=== PATIENT | female | born 1955 | race Caucasian/White ===

== ENCOUNTER 2017-08-12 17:22 | Emergency (ER) | payer OTHER ==
[2015-05-22 14:54] VITALS: Ht 149.9 cm; Wt 113.9 kg
[~2017-08-12] VITALS: Ht 149.9 cm; Wt 113.9 kg
[~2017-08-12 17:22] MED LIST: ADV100/50 INH; ALB0.5 INH; ALB17R INH; ALBU8HFA INH; ALEN70TA2 PO; ALPR-429 PO; AML5; AZI250 PO; AZIT500T47 PO; BENZ-23 PO; BUPR-472 PO; CALC-638 PO; CALC3.7S10; CALC600T59 PO; CET10 PO; CHOL200021 PO; CIPR-344 PO; CLAR-12 PO; COM14R INH; CYCL10TA29 PO; DUL30 PO; DUONEB INH; EPIN0.3P14 IM; ESOM40CA42 PO; ESZO3TAB37 PO; EZE10 PO; EZET10TA41 PO; FEXO1TAB39 PO; FLUO-202 PO; FLUT10SP NS; FLUT16SP20 NS; FLUT1DIS27 IH; FLUT1DIS29 IH; FLUT1DIS32 IH; FUR20 PO; FURO-45 PO; GUAI-583 PO; GUAI-645 PO; HCTZ; HYD2 PO; HYD5L PO; HYDR-2970 PO; HYDR-5517 PO; HYDR2TAB4 PO; HYDR473S4 PO; IBU800 PO; IPRA3AMP36 IH; ITR100 PO; LEV500 PO; LEV75 PO; LEVA0.635 IH; LEVA1.2527 IH; LEVA15HF IH; LEVO5PT PO; LEVO750T23 PO; LEVO750T25 PO; LOR5/325 PO; LORA-1456 PO; MEP50 PO; METF-410 PO; METF-420 PO; METR-1 PO; METR-119 PO; MODA100T32 PO; MODA200T39 PO; MODA200T6 PO; MOM110R IH; MOME8.8H2 IH; MON10 PO; MONT10TA PO; MOX400 PO; MULT-820 PO; MULTIVIT; NITR-106 PO; OMAL150V2 SQ; ONDA4TAB PO; OXYC-869 PO; PER PO; POT10 PO; POTA-187 PO; POTA20PA10 PO; POTA25TA6 PO; POTA99TA6 PO; PRAV10TA45 PO; PRE1 PO; PRE20 PO; PRE200PT PO; SENN-192 PO; SERT-173 PO; SPI25 PO; SPIR1TAB28 PO; SPIR25TA78 PO; TEMA-55 PO; TIO18R; TRAZ-133 PO; VITA600C4 PO; [UNRECOGNIZED DRUG - CODE] MC; [UNRECOGNIZED DRUG - CODE] PO; [UNRECOGNIZED DRUG - OTHER]; oxygen INH
--- NOTE | 2017-08-12 17:23 | ER Report ---
History and Physical Time Seen By MD: 17:23 (GARFIELD MCNULTY MD) HPI/ROS CC: Chest pain HPI: 67 with a past medical history type II diabetes, interstitial lung disease on steroids, nasal cannula O2 at night, hypothyroidism, hypokalemia, hypertension, osteoporosis, abdominal wall hernia, lumbar compression fracture, frequent UTIs , coronary section, breast cancer, CHF. Patient presents to the emergency department with 1 week history of left chest pain sharp in nature worse with deep breathing radiating into her medial aspect of left arm. She denies any chest pressure, shortness of breath is at baseline, no diaphoresis, nausea or vomiting. Patient went to urgent care and received 2 nitroglycerin and the pain did not improve. Patient does have Dilaudid at home and it did not improve with Dilaudid. Patient is rating her pain as an 8 out of 10 with deep breathing. 6/ 10 while at rest. There are no alleviating factors. Pain is intermittent. ROS: 12 point review of systems essentially negative other than what's mentioned in history of present illness. NURSES AND OLD MEDICAL RECORDS: Reviewed PMH: Reviewed SURGICAL HX: Reviewed FAMILY HX: Noncontributory SOCIAL HX: Patient is manages at home she denied smoking alcohol or illicit drugs. VITAL SIGNS: Reviewed CONSTITUTIONAL: 62-year-old female in moderate distress. PHYSICAL EXAM: HEENT: Pupils equal round reactive to light and accommodate, EOMI, tympanic membranes pearly white umbo present with good light reflex. Lips dry mucous membranes moist gums nonbleeding uvula midline and rises equally with phonation, oropharynx noninjected, teeth intact. NECK: Neck supple, thyroid not appreciated, anterior and posterior cervical lymphadenopathy not appreciated. Trachea midline and rises equally with phonation. CARDIAC: S1-S2 regular rate rhythm no murmurs rubs or gallops. LUNGS: Lungs decreased air movement secondary to pain. Expiratory wheeze. ABDOMEN: Abdomen soft, nondistended, bowel sounds active in all 4 quadrants, no bruits noted, no CVA tenderness. MUSCULOSKELETAL: Strength 5 out of 5 x 4 extremities, no deformities noted. NEUROLOGIC: Patient alert and oriented by 3 (GARFIELD MCNULTY MD) Allergies: Coded Allergies: iodine (Verified Allergy, Severe, 08/12/17) Penicillins (Verified Allergy, Mild, 08/12/17) Sulfa (Sulfonamide Antibiotics) (Verified Allergy, Mild, ITCH, 08/12/17) codeine (Verified Allergy, Mild, ITCH, 08/12/17) oxycodone (Verified Allergy, Mild, 08/12/17) Home Meds Reported Medications Hydromorphone Hcl (DILAUDID) 2 Mg Tablet, 2 MG PO HS 08/12/17 Bupropion Hcl (WELLBUTRIN XL) 150 Mg Tab.er.24h, 150 MG PO QDAY, TAB 12/08/16 Montelukast Sodium (SINGULAIR) 10 Mg Tablet, 1 TAB PO QDAY, TAB 08/07/16 Potassium Gluconate (POTASSIUM) 99 Mg Tablet, 500 MG PO DAILY 08/07/16 Alprazolam (ALPRAZOLAM) 2 Mg Tablet, 1 TAB PO PRN Y for ANXIETY, #3 TAB 08/07/16 Fluticasone/Salmeterol (ADVAIR 100-50 DISKUS) 1 Each Disk.w.dev, 1 EACH IH BID 08/07/16 Omalizumab (XOLAIR) 150 Mg Vial, 150 MG SQ monthly, VIAL 04/26/15 Metformin Hcl (METFORMIN HCL) 1,000 Mg Tablet, 0.5 TAB PO BID, TAB 04/18/15 Furosemide (FUROSEMIDE) 20 Mg Tablet, PO 3XW, TAB 04/18/15 Levalbuterol Hcl (XOPENEX) 1.25 Mg/3 Ml Vial.neb, 1.25 MG IH PRN 12/05/13 Sennosides (VEGETABLE LAXATIVE) 8.6 Mg Tablet, 8.6 MG PO PRN 04/13/13 Levalbuterol Tartrate (XOPENEX HFA) 15 Gm Hfa.aer.ad, 45 GM IH PRN 04/13/13 Sertraline Hcl (Zoloft) 100 Mg Tablet, 150 MG PO QDAY 04/21/11 Amlodipine Besylate (Norvasc) 5 Mg Tab, 2.5 MG HS 04/21/11 Discontinued Scripts Hydromorphone Hcl (HYDROMORPHONE HCL) 2 Mg Tab, 1 TAB PO Q4H Y for PAIN, #20 TAB Prov:OLGA WOLFE DO 05/23/15 Hx Smoking: No Smoking Status: Never Smoker Exposure to Second Hand Smoke?: No Hx Substance Use Disorder: No Hx Alcohol Use: Yes (GARFIELD MCNULTY MD) Constitutional Vital Sign - Last 24 Hours 08/12/17 08/12/17 08/12/17 08/12/17 17:32 17:34 17:40 17:52 Temp 98.0 Pulse 96 93 Resp 24 16 B/P (MAP) 132/79 132/79 (96) Pulse Ox 84 96 O2 Delivery Room Air O2 Flow Rate 2.0 08/12/17 08/12/17 08/12/17 08/12/17 17:54 17:54 18:00 18:22 Pulse 90 92 Resp 16 8 B/P (MAP) 143/82 (102) Pulse Ox 94 92 O2 Delivery Nasal Cannula O2 Flow Rate 2.0 (SUSHANT ANTOINE MD) Medical Decision Making Data Points Result Diagram: 08/12/17175708/12/171757 Laboratory Hematology Test 08/12/17 17:58 Red Blood Count 4.75 M/uL (4.17-5.56) Mean Corpuscular Volume 93.8 fL (80.0-96.0) Mean Corpuscular Hemoglobin 31.4 pg (26.0-33.0) Mean Corpuscular Hemoglobin Concent 33.5 g/dL (32.0-36.0) Red Cell Distribution Width 13.9 % (11.5-14.5) Mean Platelet Volume 7.9 fL (7.2-11.1) Neutrophils (%) (Auto) 68.2 % (39.4-72.5) Lymphocytes (%) (Auto) 21.5 % (17.6-49.6) Monocytes (%) (Auto) 5.5 % (4.1-12.4) Eosinophils (%) (Auto) 3.8 % (0.4-6.7) Basophils (%) (Auto) 1.0 % (0.3-1.4) Nucleated RBC Relative Count (auto) 0.1 /100WBC Neutrophils # (Auto) 9.8 K/uL (2.0-7.4) Lymphocytes # (Auto) 3.1 K/uL (1.3-3.6) Monocytes # (Auto) 0.8 K/uL (0.3-1.0) Eosinophils # (Auto) 0.5 K/uL (0.0-0.5) Basophils # (Auto) 0.1 K/uL (0.0-0.1) Nucleated RBC Absolute Count (auto) 0.01 K/uL Sodium Level 136 mmol/L (137-145) Potassium Level 4.2 mmol/L (3.5-5.0) Chloride Level 100 mmol/L (98-107) Carbon Dioxide Level 28 mmol/L (22-31) Blood Urea Nitrogen 11 mg/dl (7-18) Creatinine 0.70 mg/dl (0.52-1.04) Glomerular Filtration Rate Calc > 60.0 Random Glucose 102 mg/dl (75-110) Calcium Level 9.5 mg/dl (8.4-10.2) Magnesium Level 1.6 mg/dl (1.7-2.2) Total Bilirubin 0.4 mg/dl (0.2-1.3) Aspartate Amino Transf (AST/SGOT) 66 U/L (0-35) Alanine Aminotransferase (ALT/SGPT) 61 U/L (0-56) Alkaline Phosphatase 134 U/L (0-126) Troponin I < 0.012 ng/ml B-Type Natriuretic Peptide 40 pg/ml (0-100) Total Protein 7.4 gm/dl (6.3-8.2) Albumin 4.1 g/dl (3.5-5.0) Chemistry Test 08/12/17 17:58 White Blood Count 14.4 k/uL (4.5-11.0) Red Blood Count 4.75 M/uL (4.17-5.56) Hemoglobin 14.9 g/dL (12.0-16.0) Hematocrit 44.5 % (34.0-47.0) Mean Corpuscular Volume 93.8 fL (80.0-96.0) Mean Corpuscular Hemoglobin 31.4 pg (26.0-33.0) Mean Corpuscular Hemoglobin Concent 33.5 g/dL (32.0-36.0) Red Cell Distribution Width 13.9 % (11.5-14.5) Platelet Count 361 K/uL (150-450) Mean Platelet Volume 7.9 fL (7.2-11.1) Neutrophils (%) (Auto) 68.2 % (39.4-72.5) Lymphocytes (%) (Auto) 21.5 % (17.6-49.6) Monocytes (%) (Auto) 5.5 % (4.1-12.4) Eosinophils (%) (Auto) 3.8 % (0.4-6.7) Basophils (%) (Auto) 1.0 % (0.3-1.4) Nucleated RBC Relative Count (auto) 0.1 /100WBC Neutrophils # (Auto) 9.8 K/uL (2.0-7.4) Lymphocytes # (Auto) 3.1 K/uL (1.3-3.6) Monocytes # (Auto) 0.8 K/uL (0.3-1.0) Eosinophils # (Auto) 0.5 K/uL (0.0-0.5) Basophils # (Auto) 0.1 K/uL (0.0-0.1) Nucleated RBC Absolute Count (auto) 0.01 K/uL Glomerular Filtration Rate Calc > 60.0 Calcium Level 9.5 mg/dl (8.4-10.2) Magnesium Level 1.6 mg/dl (1.7-2.2) Total Bilirubin 0.4 mg/dl (0.2-1.3) Aspartate Amino Transf (AST/SGOT) 66 U/L (0-35) Alanine Aminotransferase (ALT/SGPT) 61 U/L (0-56) Alkaline Phosphatase 134 U/L (0-126) Troponin I < 0.012 ng/ml B-Type Natriuretic Peptide 40 pg/ml (0-100) Total Protein 7.4 gm/dl (6.3-8.2) Albumin 4.1 g/dl (3.5-5.0) (SUSHANT ANTOINE MD) EKG/Imaging EKG Interpretation Normal sinus rhythm, ventricular rate 92 bpm, CO interval 140 ms, QRS duration 76 ms, QT 362 ms, QTc is 447 ms. (GARFIELD MCNULTY MD) Imaging 08/12/2017 7:55:36 pm Chest x-ray shows possible loculated effusion to the right lung base versus overlying tissue. This is similar interpretation to her last chest x-ray that was done on 08/07/2016 which had a similar interpretation. (SUSHANT ANTOINE MD) ED Course/Re-evaluation ED Course 08/12/2017 7:00:22 pm plan at this time will be to follow up on cardiac workup and labs. Patient's symptoms have been present for over a week. EKG appears unremarkable and shows normal sinus rhythm, low voltage but no significant ST segment or T-wave abnormalities. I feel at this time that the patient can be safely ruled out with a single troponin based on the duration of her symptoms along with her atypical presentation for cardiac chest pain. 08/12/2017 7:53:52 pm patient received 1 mg of IV Dilaudid for her pain reports symptoms have significantly improved. Awaiting official read for chest x -ray remaining blood work is unremarkable. Decision to Disposition Date: Aug 12, 2017 Decision to Disposition Time: 19:55 Turned Over Patient was turned over to me at 1800 08/12/2017 6:56:33 pm I have reassessed the patient at this time. CHIEF COMPLAINT: Left-sided chest pain HISTORY OF PRESENT ILLNESS: Patient is a 62-year-old female with long-standing history of interstitial lung disease also history of type II diabetes and chronic steroid use. She initially presented to urgent care with complaint of left-sided chest pain. She was sent over from urgent care to the emergency department for further evaluation based on her chief complaint there was no pre- hospital EKG that was obtained. The patient states that she's had pain to the left chest specifically with movement of the torso the left upper arm and also reproducible to palpation for approximately 1 week. It is been constant but just getting worse over the course of 1 week. She is short of breath at baseline but denies any worsening of her shortness of breath. She denies actual chest pressure she describes it more as a sharp pleuritic type pain. It does not seem to be worsened by deep inspiration. She denies any fever she denies any cough. She states that she has tried her prescribed Dilaudid at home without relief of her symptoms. She also received 2 doses of sublingual nitroglycerin in the urgent care facility again without any change in her symptoms. REVIEW OF SYSTEMS: Constitutional: No fever, no chills. Eyes: No discharge. ENT: No sore throat. Cardiovascular: Left anterior chest wall pain, no palpitations Respiratory: No cough, baseline short of breath Gastrointestinal: No abdominal pain, no vomiting. Genitourinary: No hematuria. Musculoskeletal: Chronic back pain Skin: No rashes. Neurological: No headache. Past medical history: Patient with interstitial lung disease, history of type II diabetes, history of chronic steroid use General/Constitutional: Patient is awake, alert, nontoxic and in no acute respiratory distress. Head: Steroid feces, atraumatic Eyes: Conjunctival clear, Pupils are equal and reactive to light. Extraocular muscles are intact and symmetrical. Sclera are clear and anicteric. Oropharyngeal: Mucous membranes are moist. There is no pharyngeal erythema or exudate. There are no palatal petechiae. Uvula is midline and symmetrical. Cardiovascular: Heart is regular rate and rhythm without audible murmurs, rubs or gallops. The anterior chest wall is tender to palpation and exactly reproduces the patient's symptoms. Pain is also made worse with both passive and active range of motion of the left upper extremity. Pulmonary: Lungs are with scattered rhonchi bilaterally, chest rise is symmetrical. Abdomen: Soft, nontender, no guarding or peritoneal signs. Extremities: No gross deformities, Neuro: Alert and oriented X3, Skin: No rashes, skin is warm dry and well perfused. (SUSHANT ANTOINE MD) Depart Departure Latest Vital Signs Vital Signs Date Time Temp Pulse Resp B/P (MAP) Pulse Ox O2 Delivery O2 Flow Rate FiO2 08/12/17 18:22 92 8 92 08/12/17 18:00 143/82 (102) 08/12/17 17:54 Nasal Cannula 2.0 08/12/17 17:32 98.0 (SUSHANT ANTOINE MD) Impression: Primary Impression: Anterior chest wall pain Condition: Improved Disposition: HOME OR SELF-CARE New Scripts Methocarbamol (ROBAXIN-750) 750 Mg Tablet 1500 MG PO TID for m, #12 TAB 0 Refills Prov: SUSHANT ANTOINE MD 08/12/17 Patient Instructions: Chest Wall Pain (GEN) Additional Instructions: Follow-up with your primary care provider in 48-72 hours if symptoms persist. For the next 2-3 days he may also increase her Dilaudid 2 mg to every 12 hours instead of just at nighttime as needed for pain GARFIELD MCNULTY MD Aug 12, 2017 17:23 SUSHANT ANTOINE MD Aug 12, 2017 19:01
[2017-08-12] MEDS ORDERED: ALBUTEROL/IPRATROPIUM 3 ML NEB NEB SCH (17:40)
[2017-08-12] MEDS ORDERED: HYDR2TAB74 PO (17:44)
--- NOTE | 2017-08-12 17:57 | EKG ---
FACILITY: [facility] PATIENT NAME: KALE NYE : [id number] MR: [id number] V: [id number] EXAM DATE: ORDERING PHYSICIAN: GARFIELD MCNULTY TECHNOLOGIST: Test Reason : Blood Pressure : / mmHG Vent. Rate : 092 BPM Atrial Rate : 092 BPM P-R Int : 148 ms QRS Dur : 076 ms QT Int : 362 ms P-R-T Axes : 045 020 035 degrees QTc Int : 447 ms Normal sinus rhythm Normal ECG When compared with ECG of 07-AUG-2016 16:02, No significant change was found Confirmed by PARDEEP ALBARRAN ([id number]) on 08/13/2017 6:41:09 AM Referred By: HAMLET Confirmed By:PARDEEP ALBARRAN
[2017-08-12 18:21] LABS: PLATELET COUNT, AUTOMATED 361 K/uL (150-450)
[2017-08-12] MEDS ORDERED: HYDROmorphone(ER ONLY) 1 MG/ML IVP ONE (19:05)
--- NOTE | 2017-08-12 19:52 | RADIOLOGY IMAGING REPORT ---
[place] [facility] [place] NAME: Rachel Gipson : 1955 MR: [id number] V: [id number] EXAM DATE: ORDERING PHYSICIAN: GARFIELD MCNULTY TECHNOLOGIST: Location: [facility] Patient: Rachel Gipson : 1955 Visit/Account:[id number] Date of Sevice: 08/12/2017 CHEST PA AND LAT INDICATION: chest pain COMPARISON: None available FINDINGS: The cardiac silhouette is enlarged. There is no focal infiltrate or lobar consolidation. There appears to be small loculated right pleural effusion along the lateral pleural space versus und erlying pleural thickening. IMPRESSION: 1. Question loculated pleural effusion within the right lateral pleural space, however, this could r epresent overlying tissues. If clinically indicated, CT may be of benefit. 2. Cardiomegaly Report Dictated By: Delta Hawkins at 08/12/2017 7:46 PM Report E-Signed By: Delta Hawkins at 08/12/2017 7:49 PM [id number]
[2017-08-12] MEDS ORDERED: METH-543 PO (19:59)
[2017-08-12 20:15] VITALS: BP 109/64
== END 2017-08-12 20:21 | disposition home or self-care (01) ==
LOC: ER 17:29
DX: R07.89 Other chest pain (principal); I51.7 Cardiomegaly; E11.9 Type 2 diabetes mellitus without complications; J84.9 Interstitial pulmonary disease, unspecified; E03.9 Hypothyroidism, unspecified; E87.6 Hypokalemia; I10 Essential (primary) hypertension; M81.0 Age-related osteoporosis without current pathological fracture; I50.9 Heart failure, unspecified
CPT/HCPCS: 71046; 83735; 83880; 84484; 85025; 93005; 96374; 99284; J1170; J7620; 82040; 82247; 82310; 82374; 82435; 82565; 82947; 84075; 84132; 84155; 84295; 84450; 84460; 84520

== ENCOUNTER 2018-02-04 13:48 | Outpatient (RCR) | payer MEDICARE, OTHER ==
[2015-05-22 14:54] VITALS: BMI 54.5
[2017-12-03 14:17] VITALS: BP 158/88
[2018-01-03 16:55] VITALS: BP 158/68
[~2018-02-04 13:48] MED LIST changes: +HYDR2TAB74 PO; -METF-410 PO; +METF-411 PO; -METF-420 PO; +METF-421 PO; +METH-543 PO; +OMALIZUMAB 150 MG SVD SQ ONE; -SPIR25TA78 PO; +SPIR25TA80 PO
[2018-02-04 14:05] VITALS: BP 128/67
[2018-02-07] MEDS ORDERED: KET10 PO (17:10)
[2018-02-07] MEDS ORDERED: ONDA4TAB PO (17:10)
== END 2018-03-02 ==
LOC: SPU 13:48
PROVIDERS: ATTEND Family Medicine
DX: J45.909 Unspecified asthma, uncomplicated (principal)
CPT/HCPCS: 96372; J2357

== ENCOUNTER 2018-02-07 14:46 | Emergency (ER) | payer MEDICARE, OTHER ==
[2015-05-22 14:54] VITALS: Wt 117.9 kg
[~2018-02-07 14:46] MED LIST changes: -OMALIZUMAB 150 MG SVD SQ ONE
--- NOTE | 2018-02-07 15:00 | ER Report ---
History and Physical Time Seen By MD: 15:00 Hx. of Stated Complaint: PATIENT IS REPORTING A 3 DAY HISTORY OF NAUSEA, VOMITING AND WEAKNESS HPI/ROS n/v for 3 days and now with weakness. no focal abdominal pain. no f/c. no urinary symptoms. Remainder of the 14 system rev: Yes Allergies: Coded Allergies: iodine (Verified Allergy, Severe, 08/12/17) Penicillins (Verified Allergy, Mild, 08/12/17) Sulfa (Sulfonamide Antibiotics) (Verified Allergy, Mild, ITCH, 08/12/17) codeine (Verified Allergy, Mild, ITCH, 08/12/17) oxycodone (Verified Allergy, Mild, 08/12/17) Home Meds Active Scripts Ondansetron (ZOFRAN ODT) 4 Mg Tab.rapdis, 4 MG PO Q6H Y for NAUSEA/VOMITING, # 20 TAB.ESTELA 0 Refills Prov:FOSTER MARCUM MD 02/07/18 Ketorolac Tromethamine (KETOROLAC TROMETHAMINE) 10 Mg Tab, 10 MG PO Q6H Y for PAIN, #15 TAB 0 Refills Prov:FOSTER MARCUM MD 02/07/18 Methocarbamol (ROBAXIN-750) 750 Mg Tablet, 1500 MG PO TID for m, #12 TAB 0 Refills Prov:SUSHANT ANTOINE MD 08/12/17 Reported Medications Hydromorphone Hcl (DILAUDID) 2 Mg Tablet, 2 MG PO HS 08/12/17 Bupropion Hcl (WELLBUTRIN XL) 150 Mg Tab.er.24h, 150 MG PO QDAY, TAB 12/08/16 Montelukast Sodium (SINGULAIR) 10 Mg Tablet, 1 TAB PO QDAY, TAB 08/07/16 Potassium Gluconate (POTASSIUM) 99 Mg Tablet, 500 MG PO DAILY 08/07/16 Alprazolam (ALPRAZOLAM) 2 Mg Tablet, 1 TAB PO PRN Y for ANXIETY, #3 TAB 08/07/16 Fluticasone/Salmeterol (ADVAIR 100-50 DISKUS) 1 Each Disk.w.dev, 1 EACH IH BID 08/07/16 Omalizumab (XOLAIR) 150 Mg Vial, 150 MG SQ monthly, VIAL 04/26/15 Metformin Hcl (METFORMIN HCL) 1,000 Mg Tablet, 0.5 TAB PO BID, TAB 04/18/15 Furosemide (FUROSEMIDE) 20 Mg Tablet, PO 3XW, TAB 04/18/15 Levalbuterol Hcl (XOPENEX) 1.25 Mg/3 Ml Vial.neb, 1.25 MG IH PRN 12/05/13 Sennosides (VEGETABLE LAXATIVE) 8.6 Mg Tablet, 8.6 MG PO PRN 04/13/13 Levalbuterol Tartrate (XOPENEX HFA) 15 Gm Hfa.aer.ad, 45 GM IH PRN 04/13/13 Sertraline Hcl (Zoloft) 100 Mg Tablet, 150 MG PO QDAY 04/21/11 Amlodipine Besylate (Norvasc) 5 Mg Tab, 2.5 MG HS 04/21/11 Reviewed Nurses Notes: Yes Old Medical Records Reviewed: Yes Hx Smoking: No Smoking Status: Never Smoker Exposure to Second Hand Smoke?: No Hx Substance Use Disorder: No Hx Alcohol Use: Yes (rare) Constitutional Physical Exam A/Ox3 in NAD CV: RRR no m/r/g Lungs: cta b/l Abdomen: soft, NTND Medical Decision Making Data Points Laboratory Hematology Test 02/07/18 14:56 02/07/18 15:38 02/07/18 16:13 Red Blood Count 4.58 M/uL (4.17-5.56) Mean Corpuscular Volume 92.1 fL (80.0-96.0) Mean Corpuscular Hemoglobin 31.4 pg (26.0-33.0) Mean Corpuscular Hemoglobin Concent 34.1 g/dL (32.0-36.0) Red Cell Distribution Width 13.8 % (11.5-14.5) Mean Platelet Volume 7.8 fL (7.2-11.1) Neutrophils (%) (Auto) 69.1 % (39.4-72.5) Lymphocytes (%) (Auto) 17.4 % (17.6-49.6) Monocytes (%) (Auto) 7.3 % (4.1-12.4) Eosinophils (%) (Auto) 5.2 % (0.4-6.7) Basophils (%) (Auto) 1.0 % (0.3-1.4) Nucleated RBC Relative Count (auto) 0.1 /100WBC Neutrophils # (Auto) 5.7 K/uL (2.0-7.4) Lymphocytes # (Auto) 1.4 K/uL (1.3-3.6) Monocytes # (Auto) 0.6 K/uL (0.3-1.0) Eosinophils # (Auto) 0.4 K/uL (0.0-0.5) Basophils # (Auto) 0.1 K/uL (0.0-0.1) Nucleated RBC Absolute Count (auto) 0.01 K/uL Sodium Level 136 mmol/L (137-145) Potassium Level 4.0 mmol/L (3.5-5.0) Chloride Level 96 mmol/L (98-107) Carbon Dioxide Level 28 mmol/L (22-31) Blood Urea Nitrogen 6 mg/dl (7-18) Creatinine 0.80 mg/dl (0.52-1.04) Glomerular Filtration Rate Calc > 60.0 Random Glucose 137 mg/dl (75-110) Calcium Level 8.8 mg/dl (8.4-10.2) Total Bilirubin 0.4 mg/dl (0.2-1.3) Aspartate Amino Transf (AST/SGOT) 67 U/L (0-35) Alanine Aminotransferase (ALT/SGPT) 54 U/L (0-56) Alkaline Phosphatase 80 U/L (0-126) Total Creatine Kinase 107 U/L (30-135) Total Protein 7.3 g/dl (6.3-8.2) Albumin 4.2 g/dl (3.5-5.0) Lipase 73 U/L (23-300) Urine Color Yellow Urine Clarity Slightly-cloudy Urine pH 7.0 pH (4.8-9.5) Urine Specific [place] 1.008 Urine Protein Negative mg/dL (NEGATIVE) Urine Glucose (UA) Negative mg/dL (NEGATIVE) Urine Ketones Negative mg/dL (NEGATIVE) Urine Blood Negative (NEGATIVE) Urine Nitrite Negative (NEGATIVE) Urine Bilirubin Negative (NEGATIVE) Urine Urobilinogen Negative mg/dL (0.2-1.9) Urine Leukocyte Esterase Large (NEGATIVE) Urine RBC None /HPF (0-2/HPF) Urine WBC 22 /HPF (0-5/HPF) Urine Squamous Epithelial Cells Many /LPF (</=FEW) Urine Renal Epithelial Cells Many /LPF (NONE-FEW) Urine Bacteria Few /HPF (NONE-FEW) Urine Mucus None /HPF (NONE-FEW) Influenza Virus Type A (PCR) Negative (NEGATIVE) Influenza Virus Type B (PCR) Negative (NEGATIVE) Chemistry Test 02/07/18 14:56 02/07/18 15:38 02/07/18 16:13 White Blood Count 8.2 k/uL (4.5-11.0) Red Blood Count 4.58 M/uL (4.17-5.56) Hemoglobin 14.4 g/dL (12.0-16.0) Hematocrit 42.2 % (34.0-47.0) Mean Corpuscular Volume 92.1 fL (80.0-96.0) Mean Corpuscular Hemoglobin 31.4 pg (26.0-33.0) Mean Corpuscular Hemoglobin Concent 34.1 g/dL (32.0-36.0) Red Cell Distribution Width 13.8 % (11.5-14.5) Platelet Count 326 K/uL (150-450) Mean Platelet Volume 7.8 fL (7.2-11.1) Neutrophils (%) (Auto) 69.1 % (39.4-72.5) Lymphocytes (%) (Auto) 17.4 % (17.6-49.6) Monocytes (%) (Auto) 7.3 % (4.1-12.4) Eosinophils (%) (Auto) 5.2 % (0.4-6.7) Basophils (%) (Auto) 1.0 % (0.3-1.4) Nucleated RBC Relative Count (auto) 0.1 /100WBC Neutrophils # (Auto) 5.7 K/uL (2.0-7.4) Lymphocytes # (Auto) 1.4 K/uL (1.3-3.6) Monocytes # (Auto) 0.6 K/uL (0.3-1.0) Eosinophils # (Auto) 0.4 K/uL (0.0-0.5) Basophils # (Auto) 0.1 K/uL (0.0-0.1) Nucleated RBC Absolute Count (auto) 0.01 K/uL Glomerular Filtration Rate Calc > 60.0 Calcium Level 8.8 mg/dl (8.4-10.2) Total Bilirubin 0.4 mg/dl (0.2-1.3) Aspartate Amino Transf (AST/SGOT) 67 U/L (0-35) Alanine Aminotransferase (ALT/SGPT) 54 U/L (0-56) Alkaline Phosphatase 80 U/L (0-126) Total Creatine Kinase 107 U/L (30-135) Total Protein 7.3 g/dl (6.3-8.2) Albumin 4.2 g/dl (3.5-5.0) Lipase 73 U/L (23-300) Urine Color Yellow Urine Clarity Slightly-cloudy Urine pH 7.0 pH (4.8-9.5) Urine Specific [place] 1.008 Urine Protein Negative mg/dL (NEGATIVE) Urine Glucose (UA) Negative mg/dL (NEGATIVE) Urine Ketones Negative mg/dL (NEGATIVE) Urine Blood Negative (NEGATIVE) Urine Nitrite Negative (NEGATIVE) Urine Bilirubin Negative (NEGATIVE) Urine Urobilinogen Negative mg/dL (0.2-1.9) Urine Leukocyte Esterase Large (NEGATIVE) Urine RBC None /HPF (0-2/HPF) Urine WBC 22 /HPF (0-5/HPF) Urine Squamous Epithelial Cells Many /LPF (</=FEW) Urine Renal Epithelial Cells Many /LPF (NONE-FEW) Urine Bacteria Few /HPF (NONE-FEW) Urine Mucus None /HPF (NONE-FEW) Influenza Virus Type A (PCR) Negative (NEGATIVE) Influenza Virus Type B (PCR) Negative (NEGATIVE) Urinalysis Test 02/07/18 15:38 Urine Color Yellow Urine Clarity Slightly-cloudy Urine pH 7.0 pH (4.8-9.5) Urine Specific [place] 1.008 Urine Protein Negative mg/dL (NEGATIVE) Urine Glucose (UA) Negative mg/dL (NEGATIVE) Urine Ketones Negative mg/dL (NEGATIVE) Urine Blood Negative (NEGATIVE) Urine Nitrite Negative (NEGATIVE) Urine Bilirubin Negative (NEGATIVE) Urine Urobilinogen Negative mg/dL (0.2-1.9) Urine Leukocyte Esterase Large (NEGATIVE) Urine RBC None /HPF (0-2/HPF) Urine WBC 22 /HPF (0-5/HPF) Urine Squamous Epithelial Cells Many /LPF (</=FEW) Urine Renal Epithelial Cells Many /LPF (NONE-FEW) Urine Bacteria Few /HPF (NONE-FEW) Urine Mucus None /HPF (NONE-FEW) ED Course/Re-evaluation ED Course Myalgias, n/v, improved after IV fluids and Toradol. Able to take PO. WIll continue with supportive care and PCM follow up Decision to Disposition Date: Feb 07, 2018 Decision to Disposition Time: 17:05 Depart Departure Latest Vital Signs Impression: Primary Impression: Viral syndrome Condition: Improved Disposition: HOME OR SELF-CARE New Scripts Ondansetron (ZOFRAN ODT) 4 Mg Tab.rapdis 4 MG PO Q6H Y for NAUSEA/VOMITING, #20 TAB.ESTELA 0 Refills Prov: FOSTER MARCUM MD 02/07/18 Ketorolac Tromethamine (KETOROLAC TROMETHAMINE) 10 Mg Tab 10 MG PO Q6H Y for PAIN, #15 TAB 0 Refills Prov: FOSTER MARCUM MD 02/07/18 Patient Instructions: Viral Syndrome (ED) FOSTER MARCUM MD Feb 07, 2018 15:00
[2018-02-07] MEDS ORDERED: NS(*) 0.9% 1000 ML BAG 1,000 ML IV ONE (15:08)
[2018-02-07] MEDS ORDERED: ONDANSETRON 4 MG/2 ML VIAL IVP ONE (15:10)
[2018-02-07 15:21] LABS: PLATELET COUNT, AUTOMATED 326 K/uL (150-450)
[2018-02-07] MEDS ORDERED: KETOROLAC 30 MG/ML VIAL IVP ONE (15:55)
--- NOTE | 2018-02-07 16:53 | RADIOLOGY IMAGING REPORT ---
FACILITY: [facility] PATIENT NAME: Rachel Gipson : 1955 MR: [id number] V: [id number] EXAM DATE: ORDERING PHYSICIAN: FOSTER MARCUM TECHNOLOGIST: Location: [facility] Patient: Rachel Gipson : 1955 Visit/Account:[id number] Date of Sevice: 02/07/2018 Technique: CHEST PA AND LAT HISTORY: DYSPNEA Comparison studies: Chest radiographs August 12, 2017 FINDINGS: No airspace consolidation. No pleural effusion. The cardiomediastinal silhouette is uncha nged and enlarged. IMPRESSION: 1. No acute cardiopulmonary process. Report Dictated By: Marino Bashir DO at 02/07/2018 4:48 PM Report E-Signed By: Marino Bashir DO at 02/07/2018 4:49 PM [id number]
[2018-02-07 17:00] VITALS: BP 126/72
[2018-02-07] MEDS ORDERED: KET10 PO (17:10)
[2018-02-07] MEDS ORDERED: ONDA4TAB PO (17:10)
== END 2018-02-07 17:24 | disposition home or self-care (01) ==
LOC: ER 15:00
DX: B34.9 Viral infection, unspecified (principal)
CPT/HCPCS: 71046; 81001; 82550; 83690; 85025; 87502; 96361; 96374; 96375; 99284; J1885; J2405; J7030; 82040; 82247; 82310; 82374; 82435; 82565; 82947; 84075; 84132; 84155; 84295; 84450; 84460; 84520

== ENCOUNTER 2018-04-25 12:27 | Outpatient (RCR) | payer MEDICARE, OTHER ==
[2015-05-22 14:54] VITALS: BMI 54.5
[2018-03-21 13:14] VITALS: BP 142/87
[~2018-04-25 12:27] MED LIST changes: +KET10 PO; -METF-411 PO; -METF-421 PO; +METF-450 PO; +METF-452 PO; +OMALIZUMAB 150 MG SVD SQ PRN; -POTA20PA10 PO; +POTA20PA31 PO
[2018-04-25 12:33] VITALS: BP 157/78
== END 2018-06-16 ==
LOC: SPU 12:27
PROVIDERS: ATTEND Family Medicine
DX: J45.909 Unspecified asthma, uncomplicated (principal)
CPT/HCPCS: 96372; J2357

== ENCOUNTER → 2018-06-01 | Outpatient (REF) | payer MEDICARE, OTHER ==
[2015-05-22 14:54] VITALS: BMI 54.5
[~2018-06-01] MED LIST changes: -OMALIZUMAB 150 MG SVD SQ PRN
[2018-06-01 15:56] LABS: PLATELET COUNT, AUTOMATED 314 K/uL (150-450)
== END ==
PROVIDERS: ATTEND Nurse Practitioner Family
DX: R06.02 Shortness of breath (principal)
CPT/HCPCS: 82040; 82247; 82310; 82374; 82435; 82565; 82947; 84075; 84132; 84155; 84295; 84450; 84460; 84520; 85025; 85379

== ENCOUNTER 2018-07-28 12:47 | Outpatient (RCR) | payer MEDICARE, OTHER ==
[2015-05-22 14:54] VITALS: BMI 54.5
[2018-06-20 16:14] VITALS: BP 151/87
[~2018-07-28 12:47] MED LIST changes: -ALEN70TA2 PO; +ALEN70TA46 PO; +OMALIZUMAB 150 MG SVD SQ ONE
[2018-07-28 12:52] VITALS: BP 147/82
== END 2018-09-18 ==
LOC: SPU 12:47
PROVIDERS: ATTEND Family Medicine
DX: J45.40 Moderate persistent asthma, uncomplicated (principal); J30.81 Allergic rhinitis due to animal (cat) (dog) hair and dander; J30.89 Other allergic rhinitis; J32.0 Chronic maxillary sinusitis
CPT/HCPCS: 96372; J2357

== ENCOUNTER 2018-09-26 06:42 | Outpatient (RCR) | payer MEDICARE, OTHER ==
[2015-05-22 14:54] VITALS: BMI 54.5
[~2018-09-26 06:42] MED LIST changes: -OMALIZUMAB 150 MG SVD SQ ONE
== END 2018-09-26 16:16 | disposition home or self-care (01) ==
LOC: SPU 06:42
PROVIDERS: ATTEND Family Medicine
DX: J45.40 Moderate persistent asthma, uncomplicated (principal); J30.81 Allergic rhinitis due to animal (cat) (dog) hair and dander; J30.89 Other allergic rhinitis; J32.0 Chronic maxillary sinusitis

== ENCOUNTER 2018-10-28 15:38 | Outpatient (RCR) | payer MEDICARE, OTHER ==
[2015-05-22 14:54] VITALS: BMI 54.5
== END 2018-10-31 16:46 | disposition home or self-care (01) ==
LOC: SPU 15:38
PROVIDERS: ATTEND Family Medicine
DX: J45.909 Unspecified asthma, uncomplicated (principal)

== ENCOUNTER → 2018-10-31 | Outpatient (REF) | payer MEDICARE, OTHER ==
[2015-05-22 14:54] VITALS: BMI 54.5
[2018-10-31 14:23] LABS: PLATELET COUNT, AUTOMATED 345 K/uL (150-450)
== END ==
PROVIDERS: ATTEND Nurse Practitioner Family
DX: R06.00 Dyspnea, unspecified (principal)
CPT/HCPCS: 82040; 82247; 82310; 82374; 82435; 82565; 82947; 84075; 84132; 84155; 84295; 84450; 84460; 84484; 84520; 85025; 85379

== ENCOUNTER 2019-01-19 12:38 | Outpatient (RCR) | payer MEDICARE, OTHER ==
[2015-05-22 14:54] VITALS: BMI 54.5
[2018-11-23 10:54] VITALS: BP 142/80
[~2019-01-19 12:38] MED LIST changes: +OMALIZUMAB 150 MG SVD SQ ONE; +OMALIZUMAB 150 MG/ML SYRINGE SQ ONE
[2019-01-19 12:45] VITALS: BP 156/82
[2019-02-20] MEDS ORDERED: OMALIZUMAB 150 MG/ML SYRINGE SQ ONE (13:00)
[2019-02-20 13:04] VITALS: BP 129/82
== END 2019-02-20 ==
LOC: SPU 12:38
PROVIDERS: ATTEND Family Medicine
DX: J45.40 Moderate persistent asthma, uncomplicated (principal); J30.81 Allergic rhinitis due to animal (cat) (dog) hair and dander; J30.89 Other allergic rhinitis; J32.0 Chronic maxillary sinusitis
CPT/HCPCS: 96372; J2357

== ENCOUNTER → 2019-02-09 | Outpatient (CLI) | payer MEDICARE, OTHER ==
[2015-05-22 14:54] VITALS: BMI 54.5
[~2019-02-09] MED LIST changes: -OMALIZUMAB 150 MG SVD SQ ONE; -OMALIZUMAB 150 MG/ML SYRINGE SQ ONE
[2019-02-09 09:14] LABS: PLATELET COUNT, AUTOMATED 340 K/uL (150-450)
--- NOTE | 2019-02-09 09:53 | EKG ---
FACILITY: [facility] PATIENT NAME: KALE NYE : [id number] MR: [id number] V: [id number] EXAM DATE: ORDERING PHYSICIAN: GEE KO TECHNOLOGIST: MISAEL Test Reason : PRE OP Blood Pressure : / mmHG Vent. Rate : 077 BPM Atrial Rate : 077 BPM P-R Int : 166 ms QRS Dur : 082 ms QT Int : 400 ms P-R-T Axes : 072 062 053 degrees QTc Int : 452 ms Normal sinus rhythm Normal ECG No previous ECGs available Confirmed by Dipak Montez ([id number]) on 02/09/2019 10:35:30 PM Referred By: STEFANI Confirmed By:Dipak [place]
--- NOTE | 2019-02-09 11:34 | RADIOLOGY IMAGING REPORT ---
FACILITY: [facility] PATIENT NAME: Rachel Gipson : 1955 MR: [id number] V: [id number] EXAM DATE: ORDERING PHYSICIAN: GEE KO TECHNOLOGIST: Location: [facility] Patient: Rachel Gipson : 1955 Visit/Account:[id number] Date of Sevice: 02/09/2019 Exam type: CHEST PA LAT History: Cough asthma Comparison: February 07, 2018. Findings: There is pleural thickening over the right lateral thorax. There is no evidence of acute appearing i nfiltrates, pleural effusions or pulmonary edema. The cardiac silhouette is enlarged but unchanged. There are spondylotic changes of the thoracic spine. Vertebroplasty changes are noted at the thorac olumbar junction IMPRESSION: 1. Cardiomegaly unchanged No acute cardiopulmonary process is seen Report Dictated By: Nita Whitmore MD at 02/09/2019 11:25 AM Report E-Signed By: Nita Whitmore MD at 02/09/2019 11:26 AM WSN:[id number]
== END ==
LOC: LAB 08:34
PROVIDERS: ATTEND Orthopaedic Surgery
DX: Z01.812 Encounter for preprocedural laboratory examination (principal); Z01.818 Encounter for other preprocedural examination; I51.7 Cardiomegaly; R05 Cough; J45.901 Unspecified asthma with (acute) exacerbation; I10 Essential (primary) hypertension
CPT/HCPCS: 36415; 71046; 81001; 82040; 82247; 82310; 82374; 82435; 82565; 82947; 84075; 84132; 84155; 84295; 84443; 84450; 84460; 84520; 85025; 87088; 93005

== ENCOUNTER 2019-02-11 03:21 | Emergency (ER) | payer MEDICARE, OTHER ==
[2015-05-22 14:54] VITALS: Wt 112.5 kg
--- NOTE | 2019-02-11 03:46 | ER Report ---
History and Physical Time Seen By MD: 03:43 Hx. of Stated Complaint: PT COMPLAINT OF HIGH HEART RATE AND HIGH BLOOD SUGAR. (KATRIN BHAKTA MD) HPI/ROS CHIEF COMPLAINT: Rapid heart rate and elevated blood sugar HISTORY OF PRESENT ILLNESS: This is a 63-year-old female. At 2200 hrs. last night she noted that her heart had started racing, heartbeat felt regular but fast. Mild shortness of breath with this. She had just seen her automatic oven operator recently for an evaluation prior to having knee surgery with her orthopedic surgeon and they said everything looked good. She has never had any arrhythmias that she is aware of in the past. It appears that she is in atrial flutter at this time based on the heart monitor. She denies any chest pain but has a little bit of pressure with this. Denies any nausea or vomiting. Did note that her blood sugar is running a little bit high at 198 tonight. No recent illnesses. No fevers or chills. (KATRIN BHAKTA MD) Allergies: Coded Allergies: iodine (Verified Allergy, Severe, 08/12/17) Penicillins (Verified Allergy, Mild, 08/12/17) Sulfa (Sulfonamide Antibiotics) (Verified Allergy, Mild, ITCH, 08/12/17) codeine (Verified Allergy, Mild, ITCH, 08/12/17) oxycodone (Verified Allergy, Mild, 08/12/17) olanzapine (Verified Adverse Reaction, Severe, hallucinations, 02/11/19) Home Meds Active Scripts Ondansetron (ZOFRAN ODT) 4 Mg Tab.rapdis, 4 MG PO Q6H PRN for NAUSEA/VOMITING, #20 TAB.ESTELA 0 Refills Prov:FOSTER MARCUM MD 02/07/18 Ketorolac Tromethamine (KETOROLAC TROMETHAMINE) 10 Mg Tab, 10 MG PO Q6H PRN for PAIN, #15 TAB 0 Refills Prov:FOSTER MARCUM MD 02/07/18 Methocarbamol (ROBAXIN-750) 750 Mg Tablet, 1500 MG PO TID for m, #12 TAB 0 Re fills Prov:SUSHANT ANTOINE MD 08/12/17 Reported Medications Hydromorphone Hcl (DILAUDID) 2 Mg Tablet, 2 MG PO HS 08/12/17 Bupropion Hcl (WELLBUTRIN XL) 150 Mg Tab.er.24h, 150 MG PO QDAY, TAB 12/08/16 Montelukast Sodium (SINGULAIR) 10 Mg Tablet, 1 TAB PO QDAY, TAB 08/07/16 Potassium Gluconate (POTASSIUM) 99 Mg Tablet, 500 MG PO DAILY 08/07/16 Alprazolam (ALPRAZOLAM) 2 Mg Tablet, 1 TAB PO PRN PRN for ANXIETY, #3 TAB 08/07/16 Fluticasone/Salmeterol (ADVAIR 100-50 DISKUS) 1 Each Disk.w.dev, 1 EACH IH BID 08/07/16 Omalizumab (XOLAIR) 150 Mg Vial, 150 MG SQ monthly, VIAL 04/26/15 Metformin Hcl (METFORMIN HCL) 1,000 Mg Tablet, 0.5 TAB PO BID, TAB 04/18/15 Furosemide (FUROSEMIDE) 20 Mg Tablet, PO 3XW, TAB 04/18/15 Levalbuterol Hcl (XOPENEX) 1.25 Mg/3 Ml Vial.neb, 1.25 MG IH PRN 12/05/13 Sennosides (VEGETABLE LAXATIVE) 8.6 Mg Tablet, 8.6 MG PO PRN 04/13/13 Levalbuterol Tartrate (XOPENEX HFA) 15 Gm Hfa.aer.ad, 45 GM IH PRN 04/13/13 Sertraline Hcl (Zoloft) 100 Mg Tablet, 150 MG PO QDAY 04/21/11 Amlodipine Besylate (Norvasc) 5 Mg Tab, 2.5 MG HS 04/21/11 Reviewed Nurses Notes: Yes (KATRIN BHAKTA MD) Hx Smoking: No Smoking Status: Never Smoker Exposure to Second Hand Smoke?: No Hx Substance Use Disorder: No Hx Alcohol Use: Yes (rare) (KATRIN HBAKTA MD) Constitutional Vital Sign - Last 24 Hours 02/11/19 02/11/19 02/11/19 02/11/19 03:27 03:30 03:31 03:36 Temp 98.0 Pulse 144 149 Resp 22 15 B/P (MAP) 126/82 (97) 115/83 (94) 126/82 Pulse Ox 87 94 O2 Delivery Room Air 7/13/19 7/13/19 7/13/19 7/13/19 03:40 03:51 04:00 04:06 Pulse 150 151 Resp 23 28 B/P (MAP) 113/80 (91) Pulse Ox 100 92 O2 Flow Rate 2.0 02/11/19 02/11/19 02/11/19 02/11/19 04:21 04:30 04:35 04:50 Pulse 151 147 Resp 14 26 B/P (MAP) 110/72 (85) Pulse Ox 89 83 91 02/11/19 02/11/19 02/11/19 02/11/19 05:05 05:10 05:17 05:30 Pulse 148 146 Resp 14 10 B/P (MAP) 119/108 (112) 122/113 (116) Pulse Ox 91 94 02/11/19 02/11/19 02/11/19 02/11/19 05:40 06:00 06:05 06:10 Pulse 150 88 Resp 25 21 B/P (MAP) 133/113 (120) 120/51 (74) 96/58 (71) Pulse Ox 93 95 02/11/19 02/11/19 02/11/19 02/11/19 06:15 06:20 06:25 06:30 B/P (MAP) 98/56 (70) 91/51 (64) 99/37 (57) 108/58 (75) 02/11/19 02/11/19 02/11/19 02/11/19 06:35 06:40 06:45 07:00 Pulse 85 86 Resp 12 20 B/P (MAP) 118/77 (91) 110/76 (87) Pulse Ox 93 94 02/11/19 02/11/19 02/11/19 02/11/19 07:15 07:45 08:15 08:30 Pulse 85 84 84 Resp 15 17 16 B/P (MAP) 114/73 (87) Pulse Ox 95 91 93 Intake and Output 02/10/19 02/10/19 02/11/19 15:02 23:02 07:02 Intake Total 475 ml Balance 475 ml (PRUDENCIO RHODES MD) Physical Exam General Appearance: The patient is alert. No acute distress. Eyes: Pupils are equal, round. No pallor, injection or icterus. ENT: Mucous membranes are moist. Normal oral mucosa. Posterior oropharynx is normal. Neck: Supple and non tender. Respiratory: Lungs are clear to auscultation. Cardiovascular: Tachycardia but regular rhythm. Heart monitor shows atrial flutter. EKG as noted below. No murmurs, gallops or rubs. Normal capillary refill. No edema. Gastrointestinal: Abdomen is soft and non tender. Nondistended. Normal active bowel sounds. Neurological: Alert and oriented x3. No focal neurologic deficits Skin: Warm and dry. No rashes. Musculoskeletal: Extremities are nontender. No tenderness in palpation of the back and spine. DIFFERENTIAL DIAGNOSIS: After history and physical exam, differential diagnosis was considered for new onset atrial flutter tonight at 2200 hrs. Would recommend based on this that we elect to do external electric cardioversion, and if ineffective then consider medications. ([facility]) Medical Decision Making Data Points Result Diagram: 02/11/19 0400 02/11/19 0400 Laboratory Hematology Test 02/11/19 04:00 White Blood Count 11.5 k/uL (4.5-11.0) H Red Blood Count 4.92 M/uL (4.17-5.56) Hemoglobin 15.4 g/dL (12.0-16.0) Hematocrit 45.3 % (34.0-47.0) Mean Corpuscular Volume 92.1 fL (80.0-96.0) Mean Corpuscular Hemoglobin 31.3 pg (26.0-33.0) Mean Corpuscular Hemoglobin Concent 34.0 g/dL (32.0-36.0) Red Cell Distribution Width 14.3 % (11.5-14.5) Platelet Count 396 K/uL (150-450) Mean Platelet Volume 8.3 fL (7.2-11.1) Neutrophils (%) (Auto) 76.9 % (39.4-72.5) H Lymphocytes (%) (Auto) 15.9 % (17.6-49.6) L Monocytes (%) (Auto) 5.1 % (4.1-12.4) Eosinophils (%) (Auto) 1.0 % (0.4-6.7) Basophils (%) (Auto) 1.1 % (0.3-1.4) Nucleated RBC Relative Count (auto) 0.0 /100WBC Neutrophils # (Auto) 8.9 K/uL (2.0-7.4) H Lymphocytes # (Auto) 1.8 K/uL (1.3-3.6) Monocytes # (Auto) 0.6 K/uL (0.3-1.0) Eosinophils # (Auto) 0.1 K/uL (0.0-0.5) Basophils # (Auto) 0.1 K/uL (0.0-0.1) Nucleated RBC Absolute Count (auto) 0.00 K/uL Chemistry Test 02/11/19 04:00 02/11/19 08:32 Sodium Level 137 mmol/L (137-145) Potassium Level 4.1 mmol/L (3.5-5.0) Chloride Level 101 mmol/L (98-107) Carbon Dioxide Level 23 mmol/L (22-31) Blood Urea Nitrogen 16 mg/dl (7-18) Creatinine 0.80 mg/dl (0.52-1.04) Glomerular Filtration Rate Calc > 60.0 Random Glucose 225 mg/dl (75-110) Calcium Level 9.0 mg/dl (8.4-10.2) Magnesium Level 1.7 mg/dl (1.7-2.2) Total Bilirubin 0.3 mg/dl (0.2-1.3) Aspartate Amino Transf (AST/SGOT) 40 U/L (0-35) Alanine Aminotransferase (ALT/SGPT) 48 U/L (0-56) Alkaline Phosphatase 126 U/L (0-126) B-Type Natriuretic Peptide 128 pg/ml (0-100) Total Protein 7.1 g/dl (6.3-8.2) Albumin 3.9 g/dl (3.5-5.0) Troponin I 0.090 ng/ml (PRUDENCIO RHODES MD) EKG/Imaging EKG Interpretation 12 lead EKG: Rhythm: Atrial flutter, rate 147, 2-1 [place]: normal QRS: Nonspecific ST segments: Nonspecific 12 lead EKG: After cardioversion Rhythm: normal sinus rhythm, rate 86 [place]: normal QRS: Prolonged QT ST segments: Nonspecific Imaging EXAMINATION: Portable AP Chest 02/11/2019 4:39 AM HISTORY: Atrial flutter COMPARISON: 02/09/2019 FINDINGS: Cardiomediastinal contours: Stable cardiomegaly. Lungs and pleura: Mildly increased vasculature. No overt edema. No significant effusion. Bones/soft tissues: Normal IMPRESSION: Cardiomegaly with increased vascular congestion. Report Dictated By: Robert Mcnulty MD at 02/11/2019 4:42 AM (KATRIN BHAKTA MD) ED Course/Re-evaluation Clinical Indication for ER IV: Hydration, IV Access ED Course After initial evaluation, discussed with the patient options and after our discussion she elected to go ahead and do the cardioversion. Once labs were obtained and normal as well as chest x-ray, we moved the patient into another room and had her hooked up to the playground monitor and defibrillator. Cardiopulmonary was available and we went ahead and did a cardioversion which was successful at 100 J. She is feeling much better. Heart rate stable with a normal sinus rhythm in the 80s. Re-evaluation Procedure: Procedural sedation. A pre-sedation evaluation was completed on the patient. Patient is an appropriate candidate for sedation for cardioversion. The risks of the sedation were discussed with the patient. Last oral intake was last night at about 8 PM. A time out was completed. The patient was reevaluated immediately prior to initiation of sedation. The patient was sedated with propofol. The patient was monitored with continuous pulse oximetry and front desk monitor. There were no compl ications and no significant hypoxemia. I remained at the bedside for the sedation. The total time I spent in the procedural sedation was 10 minutes. Post sedation evaluation: Patient was alert and cooperative, hemodynamically stable with appropriate respiratory status, temperature and pain control without ongoing nausea and vomiting. Procedure: Elective cardioversion for atrial flutter: Patient was hooked up to the defibrillator pads and synchronization was obtained. 100 J was used, conversion to normal sinus rhythm with a rate of 86. The procedure was performed by myself. Decision to Disposition Date: Feb 11, 2019 Decision to Disposition Time: 06:50 (KATRIN BHAKTA MD) ED Course ED course patient endorsed me by Dr. Larios patient having spoken to the automatic oven operator be discharged on Stacey Jessica 5 mg by mouth twice a day for the next 4-6 weeks and follow up with cardiology. Cardiology felt comfortable and confident based on her prior workup and her current workup that she is safe to go home that her troponins trending from 0.15 0.5 0.9 is well within the accepted normal range after a cardioversion in a flutter. Decision to Disposition Date: Feb 11, 2019 Decision to Disposition Time: 09:28 (PRUDENCIO RHODES MD) Depart Departure Latest Vital Signs Vital Signs Date Time Temp Pulse Resp B/P (MAP) Pulse Ox O2 Delivery O2 Flow Rate FiO2 02/11/19 08:30 114/73 (87) 02/11/19 08:15 84 16 93 02/11/19 03:40 2.0 02/11/19 03:31 98.0 Room Air (PRUDENCIO RHODES MD) Impression: Primary Impression: Atrial flutter Condition: Improved Disposition: HOME OR SELF-CARE Referrals: BRIA LUTZ MD 5 Days Patient Instructions: Atrial Flutter (ED) Additional Instructions: Please call your automatic oven operator and arrange follow-up this week. Problem Qualifiers Primary Impression: Atrial flutter Atrial flutter type: unspecified Qualified Codes: I48.92 - Unspecified atrial flutter KATRIN BHAKTA MD Feb 11, 2019 03:45 PRUDENCIO RHODES MD Feb 11, 2019 09:31
[2019-02-11 04:14] LABS: PLATELET COUNT, AUTOMATED 396 K/uL (150-450)
--- NOTE | 2019-02-11 04:50 | RADIOLOGY IMAGING REPORT ---
FACILITY: [facility] PATIENT NAME: Rachel Gipson : 1955 MR: [id number] V: [id number] EXAM DATE: ORDERING PHYSICIAN: KATRIN BHAKTA TECHNOLOGIST: Location: [facility] - [place] Patient: Rachel Gipson : 1955 Visit/Account:[id number] Date of Sevice: 02/11/2019 EXAMINATION: Portable AP Chest 02/11/2019 4:39 AM HISTORY: Atrial flutter COMPARISON: 02/09/2019 FINDINGS: Cardiomediastinal contours: Stable cardiomegaly. Lungs and pleura: Mildly increased vasculature. No overt edema. No significant effusion. Bones/soft tissues: Normal IMPRESSION: Cardiomegaly with increased vascular congestion. Report Dictated By: Robert Mcnulty MD at 02/11/2019 4:42 AM Report E-Signed By: Robert Mcnulty MD at 02/11/2019 4:44 AM WSN:[id number]
--- NOTE | 2019-02-11 05:23 | EKG ---
FACILITY: [facility] - [place] PATIENT NAME: KALE NYE : [id number] MR: [id number] V: [id number] EXAM DATE: ORDERING PHYSICIAN: KATRIN BHAKTA TECHNOLOGIST: JOSEPH Test Reason : TACHYCARDIA/ a- flutter Blood Pressure : / mmHG Vent. Rate : 147 BPM Atrial Rate : 294 BPM P-R Int : 000 ms QRS Dur : 134 ms QT Int : 344 ms P-R-T Axes : 000 -01 -67 degrees QTc Int : 538 ms Atrial flutter Nonspecific intraventricular block Abnormal ECG When compared with ECG of 09-FEB-2019 09:30, Significant changes have occurred Confirmed by MONICA NYE ([id number]) on 02/11/2019 5:53:01 AM Referred By: YONY Confirmed By:MONICA NYE
[2019-02-11] MEDS ORDERED: PROPOFOL EMUL 10MG/ML 20 ML VL IVP ONE (05:30)
[2019-02-11] MEDS ORDERED: NS(*) 0.9% 1000 ML BAG 1,000 ML IV ONE (05:55)
--- NOTE | 2019-02-11 06:39 | EKG ---
FACILITY: [facility] - [place] PATIENT NAME: KALE NYE : [id number] MR: [id number] V: [id number] EXAM DATE: ORDERING PHYSICIAN: KATRIN BHAKTA TECHNOLOGIST: JOSEPH Test Reason : POST CARDIO-VERT Blood Pressure : / mmHG Vent. Rate : 086 BPM Atrial Rate : 086 BPM P-R Int : 152 ms QRS Dur : 082 ms QT Int : 392 ms P-R-T Axes : 047 011 054 degrees QTc Int : 469 ms Normal sinus rhythm Inverted T V1-3 with flat T in V4-6 and limb leads. This may be related to ischemia, post cardioversi on effect or electrolyte abnormality. Compared to last EKG, rhythm has been converted from atrial flutter to sinus. Prolonged QT -mild. Abnormal ECG No previous ECGs available Confirmed by MONICA NYE ([id number]) on 02/11/2019 6:53:03 AM Referred By: YONY Confirmed By:MONICA NYE
[2019-02-11 09:30] VITALS: BP 109/50
== END 2019-02-11 09:44 | disposition home or self-care (01) ==
LOC: ER 03:48
DX: I48.92 Unspecified atrial flutter (principal)
CPT/HCPCS: 71045; 83735; 83880; 84484; 85025; 92960; 93005; 96361; 96374; 99284; J2704; J7030; 82040; 82247; 82310; 82374; 82435; 82565; 82947; 84075; 84132; 84155; 84295; 84450; 84460; 84520